=== PATIENT | female | born 1990 | race Caucasian/White ===

== ENCOUNTER 2018-09-22 23:00 | Emergency (ER) | payer OTHER, SELFPAY ==
[~2018-09-22] VITALS: Ht 157.5 cm; Wt 72.6 kg
--- OUTSIDE RECORDS SUMMARY | 2018-09-22 23:03 | XMS REPORT ---
[facility] Address Unknown Phone Unavailable Care Team Providers Care Placement Coordinator Name Role Phone Unavailable Unavailable Payers Payer Name Policy Type Policy Number Effective Date Expiration Date Problems This patient has no known problems. Allergies, Adverse Reactions, Alerts Allergy Name Allergy Type Status Severity Reaction(s) Onset Date Inactive Date Treating Clinician Comments No Known Allergies DA Active U 2014-06-24 00:00:00 Medications This patient has no known medications.
== END 2018-09-23 01:30 | disposition home or self-care (01) ==
LOC: ER 23:00
DX: M79.662 Pain in left lower leg (principal); R25.2 Cramp and spasm
CPT/HCPCS: 93971; 99283

== ENCOUNTER 2019-04-28 17:43 | Emergency (ER) | payer OTHER ==
[~2019-04-28] VITALS: Ht 157.5 cm; Wt 72.6 kg
[2019-04-28 20:32] LABS: INFLUENZAE A&B ANTIGEN (RAPID) NEGATIVE (NEGATIVE); STREPTOCOCCUS GRP A ANTIGEN NEGATIVE (NEGATIVE)
== END 2019-04-28 21:05 | disposition home or self-care (01) ==
LOC: ER 17:43
DX: R50.9 Fever, unspecified (principal); R19.7 Diarrhea, unspecified; B34.9 Viral infection, unspecified
CPT/HCPCS: 83518; 87070; 87400; 99282

== ENCOUNTER 2019-08-12 08:34 | Emergency (ER) | payer OTHER ==
[~2019-08-12] VITALS: Ht 157.5 cm; Wt 72.6 kg
--- NOTE | 2019-08-12 08:51 | Emergency Department Note ---
History of Present Illnes History of Present Illness Chief Complaint: General Medicine Complaints History of Present Illness This is a 28 year old female PATIENT IN FROM HOME STATING THAT SHE WAS EXPOSED TO A COWORKER WHO TESTED POSITIVE FOR COVID; PATIENT HERE FOR TESTING. PATIENT DENIES ANY SYMPTOMS, BUT STATES THAT OVER THE WEEKEND SHE HAD A LOW GRADE TEMP. Historian: Patient Arrival Mode: Car Flame Degreaser Required: No Onset (how long ago): day(s) (2) Radiation: Reports non-radiation Severity: mild Progression: resolved Chronicity: new Context: Denies recent illness Relieving factors: none Exacerbating factors: none Associated symptoms: Reports denies other symptoms; Denies cough, Denies shortness of breath Treatments prior to arrival: none Past Medical/Family History Physician Review I have reviewed the patient's past medical and family history. Any updates have been documented here. Past Medical History Recent Fever: Yes Clinical Suspicion of Infectio: No New/Unexplained Change in Ment: No Other Medical History: PSORIASIS MISCARRIAGE 08/2018 Past Surgical History: None Social History Smoking Cessation: Never Smoker Counseling Performed: No Alcohol Use: None Any Illegal Drug Use: No TB Exposure/Symptoms: No Physically hurt or threatened: No Family History Family history of heart diseas: No Other Last Tetanus: DENIES Review of Systems Review of Systems Constitutional: Reports as per HPI, Reports fever (HIGHEST WAS 99.5) EENTM: Reports no symptoms Cardiovascular: Reports no symptoms Respiratory: Reports no symptoms Gastrointestinal: Reports no symptoms Genitourinary: Reports no symptoms Musculoskeletal: Reports no symptoms Integumentary: Reports no symptoms Neurological: Reports no symptoms Psychological: Reports no symptoms Endocrine: Reports no symptoms Hematological/Lymphatic: Reports no symptoms Physical Exam Related Data Allergies: Coded Allergies: No Known Allergies (Unverified , 11/20/13) Triage Vital Signs Vital Signs Date Time Temp Pulse Resp B/P (MAP) Pulse Ox O2 Delivery O2 Flow Rate FiO2 08/12/19 08:44 97.4 98 18 122/80 99 Vital signs reviewed: Yes Physical Exam CONSTITUTIONAL Constitutional: Present well-developed, Present well-nourished HENT HENT: Present normocephalic, Present atraumatic, Present oropharynx clear/moist, Present nose normal HENT L/R: Present left ext ear normal, Present right ext ear normal EYES Eyes: Reports PERRL, Reports conjunctivae normal NECK Neck: Present ROM normal PULMONARY Pulmonary: Present effort normal, Present breath sounds normal CARDIOVASCULAR Cardiovascular: Present regular rhythm, Present heart sounds normal, Present capillary refill normal, Present normal rate GASTROINTESTINAL Abdominal: Present soft, Present nontender, Present bowel sounds normal GENITOURINARY Genitourinary: Present exam deferred SKIN Skin: Present warm, Present dry MUSCULOSKELETAL Musculoskeletal: Present ROM normal NEUROLOGICAL Neurological: Present alert, Present oriented x 3, Present no gross motor or sensory deficits PSYCHOLOGICAL Psychological: Present mood/affect normal, Present judgement normal Assessment & Plan Medical Decision Making MDM NO TESTS NEEDED Reassessment Reassessment CALL 211, GET TESTED FOR COVID, SELF-QUARANTINE Assessment & Plan Final Impression: (1) Worried well Depart Disposition: HOME, SELF-CARE Last Vital Signs Date Time Temp Pulse Resp B/P (MAP) Pulse Ox O2 Delivery O2 Flow Rate FiO2 08/12/19 08:44 97.4 98 18 122/80 99 JOSE GUADALUPE GASTON MD Aug 12, 2019 08:51
--- NOTE | 2019-08-12 08:55 | NUR ---
PATIENT STATING "SO WHAT ARE WE GOING TO DO? IF I AM NOT GETTING A TEST, THEN I AM JUST GOING TO LEAVE. THE ONLY REASON I CAME IS TO GET A COVID TEST, I DON'T EVEN FEEL BAD. I AM NOT GOING TO PAY OR GET BILLED FOR AN ER VISIT IF I AM NOT GETTING WHAT I WANT". PATIENT THEN REFUSED TO SIGN ANY PAPERWORK AND LEFT WITH HER CHILD, WHOM SHE HAD ALSO SIGNED IN TO GET COVID TESTED.
== END 2019-08-12 09:05 | disposition home or self-care (01) ==
LOC: ER 09:04
DX: Z71.1 Person with feared health complaint in whom no diagnosis is made (principal)
CPT/HCPCS: 99282